=== PATIENT | male | born 1950 | race Caucasian/White ===

== ENCOUNTER 2018-12-03 11:55 | Day surgery (SDC) | payer OTHER ==
[~2018-12-03] VITALS: Ht 167.6 cm; Wt 78.6 kg
[~2018-12-03 11:55] MED LIST: ALBIPROI INH; ALBU3IS INH; ALBU90OI; ALBU90OI INH; AMLO5 PO; ASPI325EC PO; ASPI81EC PO; ATOR20 PO; ATOR40TA PO; ATOR80 PO; AZIT250 PO; Accuneb1.25 MG/3 INH; BENADRYL PO; CHOL10002 PO; COMBIVENT RESPIM4 GM INH; DOXA2 PO; Doxycycline Hy100 MG PO; FENO67 PO; FINA5 PO; FISH1000 PO; FLONASE ALLERG9.9 ML NS; FLUD.1 PO; FLUDROCORTISONE PO; FLUSAL1005 IH; FLUSAL2505; FLUSAL2505 IH; FLUSAL5005 INH; FLUSAL5005 PO; FLUT.05NI; FLUT1DIS8 INH; GABA100 PO; IPRA.03NI; LEVFLO500 PO; MEDICAL MARIJUANA; MESA400ER PO; METF500 PO; METFORMIN HCL500 MG PO; MOME220I; MONT10T; MUCUS ER1200 MG PO; MULVITMIND PO; Multiple Vitam1 EAC1 PO; NAPR500; NAPR550 PO; Naprosyn500 MG PO; Norco 5-325 Ta1 EACH PO; OXYACE5T; OXYACE5T PO; PRED10 PO; PRED20 PO; PROM25 PO; ROFL500T PO; ROSU10TA PO; SACC250C PO; SULTRIDS PO; TAMS.4ER PO; TOLT2ER PO; WAL-ZYR10 MG PO; ZYRTEC10 M1 PO; Zofran4 MG PO
== END 2018-12-03 14:47 | disposition home or self-care (01) ==
LOC: ORSCSDS 11:55
PROVIDERS: Internal Medicine Gastroenterology
PROC: 0DBM8ZX Excision of Descending Colon, Via Natural or Artificial Opening Endoscopic, Diagnostic (ICD-10-PCS; principal; 2018-12-03 13:45)
PROC: 0DBN8ZX Excision of Sigmoid Colon, Via Natural or Artificial Opening Endoscopic, Diagnostic (ICD-10-PCS; principal; 2018-12-03 13:45)
DX: Z12.11 Encounter for screening for malignant neoplasm of colon (principal); Z86.010 Personal history of colon polyps; K57.30 Diverticulosis of large intestine without perforation or abscess without bleeding; D12.4 Benign neoplasm of descending colon; D12.5 Benign neoplasm of sigmoid colon; I10 Essential (primary) hypertension; Z95.0 Presence of cardiac pacemaker; G47.33 Obstructive sleep apnea (adult) (pediatric); J44.9 Chronic obstructive pulmonary disease, unspecified; Z87.891 Personal history of nicotine dependence; Z99.81 Dependence on supplemental oxygen; B19.20 Unspecified viral hepatitis C without hepatic coma; Z79.899 Other long term (current) drug therapy
CPT/HCPCS: 82947; 88305; J2370; J7120

== ENCOUNTER 2019-05-19 14:34 | Emergency (ER) | payer OTHER ==
[~2019-05-19] VITALS: Ht 167.6 cm; Wt 82.5 kg
[2019-05-19] MEDS ORDERED: AMLO5 PO (14:48)
[2019-05-19] MEDS ORDERED: PRED10 PO (14:50)
[2019-05-19 15:15] LABS: BASOPHILS ABSOLUTE AUTO 0.05 K/mm3 (0.00-0.23); BASOPHILS PERCENT AUTO 0 % (0-2); EOSINOPHILS ABSOLUTE AUTO 0.01 K/mm3 (0.00-0.68); EOSINOPHILS PERCENT AUTO 0 % (0-6); Hematocrit 46.5 % (37.0-53.0); Hemoglobin 15.5 g/dL (13.5-17.5); IMMATURE GRAN ABSOLUTE AUTO 0.13 K/mm3 (0.00-0.10); IMMATURE GRAN PERCENT AUTO 1 % (0-1); LYMPHOCYTES ABSOLUTE AUTO 1.86 K/mm3 (0.84-5.20); LYMPHOCYTES PERCENT AUTO 11 % (21-46); MONOCYTES ABSOLUTE AUTO 1.28 K/mm3 (0.16-1.47); MONOCYTES PERCENT AUTO 7 % (4-13); Mean Corpuscular HGB 31.3 pg (26.0-34.0); Mean Corpuscular HGB Conc 33.3 g/dL (31.5-36.5); Mean Corpuscular Volume 94 fL (80-100); Mean Platelet Volume 9.7 fL (9.1-12.4); NEUTROPHILS ABSOLUTE AUTO 13.97 K/mm3 (1.96-9.15); NEUTROPHILS PERCENT AUTO 81 % (41-73); Platelet Count 227 K/mm3 (150-400); RDW Coefficient Variation 13.4 % (11.7-14.2); RDW Standard Deviation 45.7 fL (35.1-46.3); Red Blood Cell Count 4.96 M/mm3 (4.30-5.90)
[2019-05-19 15:56] LABS: Alanine Aminotransfer (ALT/SGP 51 U/L (12-78); Albumin, Blood 4.4 g/dL (3.4-5.0); Albumin/Globulin Ratio 1.2 (0.8-1.8); Alk Phos 53 U/L (50-136); Anion Gap 7 mmol/L (6-16); Aspartate Aminotrans (AST/SGOT 33 U/L (12-37); Bilirubin, Total 1.1 mg/dL (0.1-1.0); Blood Urea Nitrogen 12 mg/dL (8-24); Bun/Creatinine Ratio 17.3 (12.0-20.0); CO2, Blood 23 mmol/L (21-32); Calcium, Blood 9.4 mg/dL (8.5-10.1); Chloride, Blood 110 mmol/L (98-108); Creatinine, Blood 0.69 mg/dL (0.60-1.20); Globulin, Blood 3.8 g/dL (2.2-4.0); Glomerular Filtration Rate >60 (60-); Glucose, Blood 137 mg/dL (70-99); Potassium, Blood 3.9 mmol/L (3.5-5.5); Sodium, Blood 140 mmol/L (136-145); Total Protein, Blood 8.2 g/dL (6.4-8.2)
[2019-05-19 16:42] LABS: Magnesium, Blood 2.1 mg/dL (1.6-2.4); Troponin I <0.015 ng/mL (0.000-0.040)
[2019-05-19] MEDS ORDERED: Flagyl500 MG PO (17:54)
[2019-05-19] MEDS ORDERED: Cipro500 MG PO (17:54)
[2019-05-19] MEDS ORDERED: Zofran4 MG PO (17:55)
[2019-05-19 18:08] LABS: Source, Urine Clean Catch
[2019-05-19 18:30] LABS: Bilirubin, Urine Neg (Neg); Blood, Urine 1+ (Neg); Glucose Qualitative, Urine Neg (Neg); Ketones, Urine 2+ (Neg); Leukocyte Esterase, Urine Neg (Neg); Nitrite, Urine Neg (Neg); Protein, Urine 3+ (Neg); Urobilinogen, Urine NORM (Normal)
[2019-05-19 18:40] LABS: Appearance, Urine Clear (Clear); Color, Urine Yellow (P-Yellow)
[2019-05-19 18:41] LABS: Bacteria Mod /hpf; Mucus Light (0-Heavy); Red Blood Cells, Urine 0-2 /hpf (0-2); Squamous Epithelial Cells Not Seen /hpf (Few); White Blood Cells, Urine 0-2 /hpf (0-5)
== END 2019-05-19 18:22 | disposition home or self-care (01) ==
LOC: ER 14:34
PROVIDERS: Emergency Medicine
DX: K52.9 Noninfective gastroenteritis and colitis, unspecified (principal); E11.9 Type 2 diabetes mellitus without complications; J44.9 Chronic obstructive pulmonary disease, unspecified; N40.0 Benign prostatic hyperplasia without lower urinary tract symptoms; Z88.8 Allergy status to other drugs, medicaments and biological substances; Z91.018 Allergy to other foods; Z87.891 Personal history of nicotine dependence; Z86.19 Personal history of other infectious and parasitic diseases; Z79.84 Long term (current) use of oral hypoglycemic drugs; Z79.899 Other long term (current) drug therapy
CPT/HCPCS: 71046; 74176; 80053; 81001; 83690; 83735; 84145; 84484; 85025; 87086; 93005; 93010; 94640; 96360; 99285-25; A9270-GY; J7030

== ENCOUNTER → 2021-12-19 | Outpatient (CLI) | payer OTHER ==
[~2021-12-19] MED LIST changes: +Cipro500 MG PO; +Flagyl500 MG PO
== END | disposition home or self-care (01) ==
LOC: LAB 11:54 → LAB SHORT 11:54
DX: L72.3 Sebaceous cyst (principal)
CPT/HCPCS: 87070; 87075; 87205

== ENCOUNTER 2022-04-20 07:23 | Emergency (ER) | payer OTHER ==
[~2022-04-20] VITALS: Ht 167.6 cm; Wt 76.2 kg
[2022-04-20 08:13] LABS: BASOPHILS ABSOLUTE AUTO 0.03 K/mm3 (0.00-0.23); BASOPHILS PERCENT AUTO 0 % (0-2); EOSINOPHILS PERCENT AUTO 0 % (0-6); Hematocrit 43.6 % (37.0-53.0); Hemoglobin 14.7 g/dL (13.5-17.5); IMMATURE GRAN ABSOLUTE AUTO 0.12 K/mm3 (0.00-0.10); IMMATURE GRAN PERCENT AUTO 1 % (0-1); LYMPHOCYTES ABSOLUTE AUTO 2.06 K/mm3 (0.84-5.20); LYMPHOCYTES PERCENT AUTO 12 % (21-46); MONOCYTES ABSOLUTE AUTO 2.03 K/mm3 (0.16-1.47); MONOCYTES PERCENT AUTO 12 % (4-13); Mean Corpuscular HGB 30.5 pg (26.0-34.0); Mean Corpuscular HGB Conc 33.7 g/dL (31.5-36.5); Mean Corpuscular Volume 91 fL (80-100); Mean Platelet Volume 9.1 fL (9.1-12.4); NEUTROPHILS ABSOLUTE AUTO 12.79 K/mm3 (1.96-9.15); NEUTROPHILS PERCENT AUTO 75 % (41-73); Platelet Count 278 K/mm3 (150-400); RDW Standard Deviation 43.1 fL (35.1-46.3); Red Blood Cell Count 4.82 M/mm3 (4.30-5.90); White Blood Cell Count 17.03 K/mm3 (4.00-11.30)
[2022-04-20 08:26] LABS: Albumin, Blood 3.8 g/dL (3.4-5.0); Bilirubin, Total 0.7 mg/dL (0.1-1.0); Bun/Creatinine Ratio 23.4 (12.0-20.0); Calcium, Blood 9.7 mg/dL (8.5-10.1); Creatinine, Blood 0.73 mg/dL (0.60-1.20); Total Protein, Blood 7.8 g/dL (6.4-8.2)
[2022-04-20] MEDS ORDERED: AMOCLA875 PO (09:50)
== END 2022-04-20 10:10 | disposition home or self-care (01) ==
LOC: ER 07:23
PROVIDERS: Emergency Medicine
DX: J44.1 Chronic obstructive pulmonary disease with (acute) exacerbation (principal); K52.1 Toxic gastroenteritis and colitis; T38.3X5A Adverse effect of insulin and oral hypoglycemic [antidiabetic] drugs, initial encounter; D72.829 Elevated white blood cell count, unspecified; E11.9 Type 2 diabetes mellitus without complications; Z79.84 Long term (current) use of oral hypoglycemic drugs; Z88.8 Allergy status to other drugs, medicaments and biological substances; Z91.018 Allergy to other foods; Z79.899 Other long term (current) drug therapy
CPT/HCPCS: 71046; 74177; 80053; 83690; 85025; 93005; 93010; 94640; 94664; A9270; Q9967

== ENCOUNTER 2022-11-26 07:52 | Day surgery (SDC) | payer OTHER ==
[~2022-11-26] VITALS: Ht 167.6 cm; Wt 74.8 kg
[~2022-11-26 07:52] MED LIST changes: +AMOCLA875 PO
[2022-11-26] MEDS ORDERED: Keflex500 MG PO (12:11)
--- NOTE | 2022-11-26 14:05 | NUR ---
PT AND CAREGIVER VERBALIZED UNDERSTANDING OF WRITTEN AND VERBAL D/C INST. -BLEEDING OR SWELLING L UPPER CHEST AREA. IV REMOVED. PT TAKEN OUT OF THE HRT CENTER VIA W/C.
== END 2022-11-26 14:07 | disposition home or self-care (01) ==
LOC: MHTC 07:52
DX: Z45.010 Encounter for checking and testing of cardiac pacemaker pulse generator [battery] (principal); I10 Essential (primary) hypertension; R06.02 Shortness of breath; Z88.8 Allergy status to other drugs, medicaments and biological substances; J44.9 Chronic obstructive pulmonary disease, unspecified; E11.9 Type 2 diabetes mellitus without complications; E78.5 Hyperlipidemia, unspecified; Z79.84 Long term (current) use of oral hypoglycemic drugs
CPT/HCPCS: 33228; 99152; 99153; C1781; C1785; J0690; J1644; J2250; J3010; J7030; J7040

== ENCOUNTER 2023-04-07 18:01 | Emergency (ER) | payer OTHER ==
[~2023-04-07] VITALS: Ht 167.6 cm; Wt 74.8 kg
[~2023-04-07 18:01] MED LIST changes: +Keflex500 MG PO
[2023-04-07 18:45] VITALS: BP 145/79
== END 2023-04-07 18:54 | disposition home or self-care (01) ==
LOC: ER 18:01
DX: E11.65 Type 2 diabetes mellitus with hyperglycemia (principal); Z88.8 Allergy status to other drugs, medicaments and biological substances; Z91.018 Allergy to other foods; Z79.899 Other long term (current) drug therapy; Z79.84 Long term (current) use of oral hypoglycemic drugs; Z79.52 Long term (current) use of systemic steroids; J44.9 Chronic obstructive pulmonary disease, unspecified
CPT/HCPCS: 82947

== ENCOUNTER 2023-10-28 11:53 | Emergency (ER) | payer OTHER ==
[~2023-10-28] VITALS: Ht 162.6 cm; Wt 70.3 kg
[~2023-10-28 11:53] MED LIST changes: +ACIDOPHILUS1 EAC3 PO; +DOCUZEN 8.6-501 EACH PO; +FUROSEMIDE40 MG PO; +LEVAQUIN750 MG PO; +MIRALAX17 GM PO; +Prednisone10 MG; +ZYRTEC10 M2 PO
[2023-10-28 12:26] VITALS: BP 153/72
[2023-10-28 13:00] LABS: BASOPHILS ABSOLUTE AUTO 0.05 K/mm3 (0.00-0.23); BASOPHILS PERCENT AUTO 1 % (0-2); EOSINOPHILS ABSOLUTE AUTO 0.07 K/mm3 (0.00-0.68); EOSINOPHILS PERCENT AUTO 1 % (0-6); Hemoglobin 14.5 g/dL (13.5-17.5); IMMATURE GRAN ABSOLUTE AUTO 0.03 K/mm3 (0.00-0.10); IMMATURE GRAN PERCENT AUTO 0 % (0-1); LYMPHOCYTES ABSOLUTE AUTO 2.67 K/mm3 (0.84-5.20); LYMPHOCYTES PERCENT AUTO 28 % (21-46); MONOCYTES ABSOLUTE AUTO 0.82 K/mm3 (0.16-1.47); MONOCYTES PERCENT AUTO 9 % (4-13); Mean Corpuscular HGB 30.5 pg (26.0-34.0); Mean Corpuscular HGB Conc 33.7 g/dL (31.5-36.5); Mean Corpuscular Volume 91 fL (80-100); Mean Platelet Volume 8.9 fL (9.1-12.4); NEUTROPHILS ABSOLUTE AUTO 5.85 K/mm3 (1.96-9.15); NEUTROPHILS PERCENT AUTO 62 % (41-73); Platelet Count 266 K/mm3 (150-400); RDW Coefficient Variation 13.7 % (11.7-14.2); RDW Standard Deviation 45.5 fL (35.1-46.3); Red Blood Cell Count 4.75 M/mm3 (4.30-5.90); White Blood Cell Count 9.49 K/mm3 (4.00-11.30)
[2023-10-28 13:34] LABS: Albumin, Blood 3.9 g/dL (3.4-5.0); Bilirubin, Total 0.4 mg/dL (0.1-1.0); Bun/Creatinine Ratio 19.7 (12.0-20.0); Calcium, Blood 9.8 mg/dL (8.5-10.1); Creatinine, Blood 0.71 mg/dL (0.60-1.20); Globulin, Blood 3.9 g/dL (2.2-4.0); Potassium, Blood 3.9 mmol/L (3.5-5.5); Total Protein, Blood 7.8 g/dL (6.4-8.2)
== END 2023-10-28 16:55 | disposition home or self-care (01) ==
LOC: ER 11:53
PROVIDERS: Physician Assistant
DX: M19.90 Unspecified osteoarthritis, unspecified site (principal); J44.9 Chronic obstructive pulmonary disease, unspecified; E11.40 Type 2 diabetes mellitus with diabetic neuropathy, unspecified; E11.51 Type 2 diabetes mellitus with diabetic peripheral angiopathy without gangrene; I11.0 Hypertensive heart disease with heart failure; I50.30 Unspecified diastolic (congestive) heart failure; Z88.8 Allergy status to other drugs, medicaments and biological substances; Z91.018 Allergy to other foods; Z79.899 Other long term (current) drug therapy; Z87.891 Personal history of nicotine dependence; Z95.0 Presence of cardiac pacemaker
CPT/HCPCS: 80053; 85025; 99283; A9270

== ENCOUNTER → 2023-12-26 | Outpatient (CLI) | payer OTHER | LOC: LAB 17:06 → LAB SHORT 17:06 | DX: L08.9 Local infection of the skin and subcutaneous tissue, unspecified (principal) | CPT/HCPCS: 87070; 87077; 87186; 87205 ==

== ENCOUNTER 2025-02-04 07:26 | Day surgery (SDC) | payer OTHER ==
[~2025-02-04 07:26] MED LIST changes: +ALBUTEROL1.25 MG/3 INH; +ANORO ELLIPTA1 EACH INH; +Cymbalta20 MG PO; +GABA300 PO; +Lactated Ringer's 1,000 ML IV SCH; +MONT10T PO
[2025-02-04 08:09] VITALS: BP 151/87
--- NOTE | 2025-02-04 08:21 | NUR ---
History, Chart, Medications and Allergies reviewed before start of procedure. Patient states colon prep results clear. Patient confirms NPO status and agrees with scheduled surgery. Pre-Op teaching done. Pt verbalizes understanding. LUNGS WIHT EXP WHEEZES T/O. REPORTS SMOKED MARIJUANA THIS MORNING ABOUT 0500 AM.
[2025-02-04] MEDS ORDERED: propofoL 40 ML IV ONE (09:00)
--- NOTE | 2025-02-04 09:10 | NUR ---
02/04/25 0910 Becky Navarro 0904-History, Chart, Medications and Allergies reviewed before start of procedure.MONITOR INTACT WITH CONTINUOUS PULSE OXIMETRY, CONTINUOUS END TITAL CO2, 3-LEAD EKG AND INTERMITTENT BLOOD PRESSURE.3-LEAD EKG REVIEWED WITH PHYSICIAN PRIOR TO START OF PROCEDURE.O2 VIA POM INTACT THROUGHOUT SEDATION/PROCEDURE. PROVIDING MAC-SEE ANESTHESIA RECORD.
[2025-02-04 09:42] VITALS: BP 114/40
[2025-02-04 09:49] VITALS: BP 145/65
--- NOTE | 2025-02-04 10:07 | NUR ---
DISCHARGE PT A&O4/VSS/RA/RY PO H20/DENIES PAIN/DRESSED SELF/IV DC'D, DC INS PROVIDED/ COPY SENT WITH PT, LEFT VIA WC WITH DC VOL WITH ALL PERSONAL POSSESSIONS TO GO HOME WITH [facility] [phone].
== END 2025-02-04 23:00 | disposition home or self-care (01) ==
LOC: ORSCMMR 07:26 → ORD 09:00 → ORSCMMR 09:00
PROVIDERS: Internal Medicine Gastroenterology
PROC: 0DBM8ZX Excision of Descending Colon, Via Natural or Artificial Opening Endoscopic, Diagnostic (ICD-10-PCS; principal; 2025-02-04 09:00)
PROC: 0DBN8ZX Excision of Sigmoid Colon, Via Natural or Artificial Opening Endoscopic, Diagnostic (ICD-10-PCS; principal; 2025-02-04 09:00)
PROC: 0DBP8ZX Excision of Rectum, Via Natural or Artificial Opening Endoscopic, Diagnostic (ICD-10-PCS; principal; 2025-02-04 09:00)
DX: Z12.11 Encounter for screening for malignant neoplasm of colon (principal); Z86.0100 Personal history of colon polyps, unspecified; K63.5 Polyp of colon; K62.1 Rectal polyp; K62.89 Other specified diseases of anus and rectum; K57.30 Diverticulosis of large intestine without perforation or abscess without bleeding; I10 Essential (primary) hypertension; E78.5 Hyperlipidemia, unspecified; Z95.0 Presence of cardiac pacemaker; J44.9 Chronic obstructive pulmonary disease, unspecified; E11.9 Type 2 diabetes mellitus without complications; Z79.84 Long term (current) use of oral hypoglycemic drugs; Z79.899 Other long term (current) drug therapy; Z85.118 Personal history of other malignant neoplasm of bronchus and lung; Z87.891 Personal history of nicotine dependence
CPT/HCPCS: 82947; 88305; J2704; J7120

== ENCOUNTER 2025-10-02 07:55 | Inpatient (IN) | payer OTHER ==
[~2025-10-02] VITALS: Ht 165.1 cm; Wt 76.6 kg
[~2025-10-02 07:55] MED LIST changes: -Lactated Ringer's 1,000 ML IV SCH
[2025-10-02 08:33] LABS: BASOPHILS ABSOLUTE AUTO 0.03 K/mm3 (0.00-0.23); BASOPHILS PERCENT AUTO 0 % (0-2); EOSINOPHILS ABSOLUTE AUTO 0.08 K/mm3 (0.00-0.68); EOSINOPHILS PERCENT AUTO 1 % (0-6); Hematocrit 45.6 % (37.0-53.0); Hemoglobin 15.2 g/dL (13.5-17.5); IMMATURE GRAN ABSOLUTE AUTO 0.03 K/mm3 (0.00-0.10); IMMATURE GRAN PERCENT AUTO 0 % (0-1); LYMPHOCYTES ABSOLUTE AUTO 1.90 K/mm3 (0.84-5.20); LYMPHOCYTES PERCENT AUTO 23 % (21-46); MONOCYTES ABSOLUTE AUTO 0.86 K/mm3 (0.16-1.47); MONOCYTES PERCENT AUTO 10 % (4-13); Mean Corpuscular HGB Conc 33.3 g/dL (31.5-36.5); Mean Corpuscular Volume 94 fL (80-100); NEUTROPHILS ABSOLUTE AUTO 5.55 K/mm3 (1.96-9.15); NEUTROPHILS PERCENT AUTO 66 % (41-73); NRBC ABSOLUTE 0.00 K/mm3 (0.00-0.02); NRBC Auto 0.0 /100 WBC (0.0-0.2); Platelet Count 234 K/mm3 (150-400); RDW Coefficient Variation 13.2 % (11.7-14.2); RDW Standard Deviation 45.1 fL (35.1-46.3)
[2025-10-02] MEDS ORDERED: Ipratropium/Albuterol SulF 2.5-0.5MG/3 ML Amp INH ONE (08:40)
[2025-10-02] MEDS ORDERED: Albuterol 2.5 MG/3 ML VIAL INH SCH ×2 (08:40→11:25)
[2025-10-02 08:54] LABS: Alanine Aminotransfer (ALT/SGP 96.0 U/L (12-78); Albumin, Blood 4.2 g/dL (3.4-5.0); Albumin/Globulin Ratio 1.1 (0.8-1.8); Anion Gap 9.0 mmol/L (3-11); Aspartate Aminotrans (AST/SGOT 61.0 U/L (12-37); Bilirubin, Total 0.6 mg/dL (0.1-1.0); Blood Urea Nitrogen 12.0 mg/dL (8-24); CO2, Blood 25.0 mmol/L (21-32); Calcium, Blood 9.5 mg/dL (8.5-10.1); Chloride, Blood 107.0 mmol/L (98-108); Creatinine, Blood 0.74 mg/dL (0.60-1.20); Globulin, Blood 3.8 g/dL (2.2-4.0); Glucose, Blood 130.0 mg/dL (70-99); Potassium, Blood 4.0 mmol/L (3.5-5.5); Sodium, Blood 137.0 mmol/L (136-145); Total Protein, Blood 8.0 g/dL (6.4-8.2)
[2025-10-02 09:57] LABS: Influenza A, PCR NEGATIVE (NEGATIVE); Influenza B, PCR NEGATIVE (NEGATIVE); Resp Syncytial Virus, PCR NEGATIVE (NEGATIVE); SARS-Cov-2 (COVID-19) PCR, MMC NEGATIVE (NEGATIVE)
[2025-10-02] MEDS ORDERED: NS 250 ML IV SCH (11:25)
[2025-10-02] MEDS ORDERED: FLU VACC TS2025(65UP)/MF59C/PF 45 MCG/0.5 ML SYRINGE IM SCH (11:50)
[2025-10-02] MEDS ORDERED: Albuterol 2.5 MG/3 ML VIAL INH PRN (11:55)
[2025-10-02] MEDS ORDERED: Ipratropium/Albuterol SulF 2.5-0.5MG/3 ML Amp INH SCH (12:00)
[2025-10-02] MEDS ORDERED: Cefepime HCl 2,000 MG in NS 100 ML IV SCH (12:00)
[2025-10-02] MEDS ORDERED: AMLO5 PO (13:02)
[2025-10-02] MEDS ORDERED: ANORO ELLIPTA1 EACH INH (13:03)
[2025-10-02] MEDS ORDERED: ATOR40TA PO (13:03)
--- NOTE | 2025-10-02 13:52 | NUR ---
ADMISSION: PT ARRIVED TO PCU @1250 VIA GURNEY. PT ABLE TO XFER VIA ONE PERSON ASSIST WITH CANE TO BED. PT ALERT AND ORIENTED X4, ABLE TO FOLLOW COMMANDS AND MAKE NEEDS KNOWN. STRENGTH EQUAL BILATERALLY. PT [place]. BP STABLE. HR ST 120'S. AFEBRILE. SPO2 >96% ON ROOM AIR. LUNG SOUNDS WITH WHEEZE THROUGHOUT. PRN BREATHING TREATMENT ORDERED. ABD SOFT, NON TENDER, BOWEL SOUNDS +. PT INC OF URINE, ATTENDS IN PLACE. PULSES STRONG AND EQUAL THROUGHOUT. HOME MEDICATIONS REVIEWED. PT ORIENTED ROOM AND CALL LIGHT SYSTEM. BED IN LOW, CALL LIGHT IN REACH.
[2025-10-02 15:51] VITALS: BP 129/82
[2025-10-02] MEDS ORDERED: Insulin Human Lispro 100 Units/ML 3ML Syringe SC SCH (16:30)
--- NOTE | 2025-10-02 19:39 | NUR ---
ASSUMPTION OF CARE ASSUMED PT'S CARE AT 1910,PT SITTING UP IN BED RECEIVING NEBULIZER TREATMENT.BEDSIDE REPORT COMPLETED,PLAN OF CARE REVIEWED.PT DENIES PAIN,DENIES SOB,DENIES NEEDS AT THIS TIME.CALL LIGHT AND PT'S ITEMS WITHIN REACH.MONITORING ONGOING PER PROTOCOL.
[2025-10-02 20:07] VITALS: BP 121/106
[2025-10-02 23:36] VITALS: BP 109/57
[2025-10-03 03:53] VITALS: BP 153/87
[2025-10-03 04:30] LABS: BASOPHILS ABSOLUTE AUTO 0.02 K/mm3 (0.00-0.23); BASOPHILS PERCENT AUTO 0 % (0-2); EOSINOPHILS ABSOLUTE AUTO 0.01 K/mm3 (0.00-0.68); EOSINOPHILS PERCENT AUTO 0 % (0-6); Hematocrit 43.1 % (37.0-53.0); Hemoglobin 14.1 g/dL (13.5-17.5); IMMATURE GRAN ABSOLUTE AUTO 0.09 K/mm3 (0.00-0.10); IMMATURE GRAN PERCENT AUTO 1 % (0-1); LYMPHOCYTES ABSOLUTE AUTO 0.95 K/mm3 (0.84-5.20); LYMPHOCYTES PERCENT AUTO 5 % (21-46); MONOCYTES ABSOLUTE AUTO 0.73 K/mm3 (0.16-1.47); MONOCYTES PERCENT AUTO 4 % (4-13); Mean Corpuscular HGB Conc 32.7 g/dL (31.5-36.5); Mean Corpuscular Volume 95 fL (80-100); NEUTROPHILS ABSOLUTE AUTO 16.56 K/mm3 (1.96-9.15); NEUTROPHILS PERCENT AUTO 90 % (41-73); NRBC ABSOLUTE 0.00 K/mm3 (0.00-0.02); NRBC Auto 0.0 /100 WBC (0.0-0.2); Platelet Count 246 K/mm3 (150-400); RDW Coefficient Variation 13.3 % (11.7-14.2); RDW Standard Deviation 46.9 fL (35.1-46.3)
[2025-10-03 04:57] LABS: Alanine Aminotransfer (ALT/SGP 79.0 U/L (12-78); Albumin, Blood 3.7 g/dL (3.4-5.0); Albumin/Globulin Ratio 1.0 (0.8-1.8); Anion Gap 10.0 mmol/L (3-11); Aspartate Aminotrans (AST/SGOT 38.0 U/L (12-37); Bilirubin, Total 0.3 mg/dL (0.1-1.0); Blood Urea Nitrogen 25.0 mg/dL (8-24); CO2, Blood 20.0 mmol/L (21-32); Calcium, Blood 10.0 mg/dL (8.5-10.1); Chloride, Blood 111.0 mmol/L (98-108); Creatinine, Blood 0.81 mg/dL (0.60-1.20); Globulin, Blood 3.7 g/dL (2.2-4.0); Glucose, Blood 187.0 mg/dL (70-99); Potassium, Blood 4.2 mmol/L (3.5-5.5); Sodium, Blood 137.0 mmol/L (136-145); Total Protein, Blood 7.4 g/dL (6.4-8.2)
--- NOTE | 2025-10-03 06:09 | NUR ---
PT MONITORED DURING THE SHIFT.PT CONTINUES TO EXPERIENCE EPISODES OF COUGHING WHILE AWAKE,AUDIBLE WHEEZES AND PRODUCTION OF YELLOW PHLEGM.NEBULIZER TREATMENTS ADMINISTERED BY RT ORDERED PER PT'S REQUEST.PT AWAKE AT THIS TIME SITTING UP IN BED COUGHING,RT IN ROOM ADMINISTERING A PRN NEBULIZER TREATMENT.PT REPORTS THAT HE SLEPT BETTER THAT HE HAS IN THE LAST THREE DAYS.PT DENIES PAIN,DENIES NEEDS.MAINTAINED OXYGEN SATURATION >94% ON RA.CALL LIGHT AND PT'S ITEMS WITHIN REACH.MONITORING ONGOING PER PROTOCOL.
[2025-10-03 08:04] VITALS: BP 142/82
[2025-10-03] MEDS ORDERED: Enoxaparin 40 MG/0.4 ML SYR SC SCH (09:00)
[2025-10-03 11:27] VITALS: BP 131/79
--- NOTE | 2025-10-03 16:19 | NUR ---
SHIFT SUMMARY PT A&Ox4, CALLS AND COMMUNICATES NEEDS APPROPRIATELY. PT VERY TALKATIVE AND HAS FLIGHTS OF IDEAS AT TIMES. PT WITH INCREASED WORK OF BREATHING AND RR STATINDG THAT HE FEELS LIKE HE CAN'T BREATH DESPITE HAVING BREATHING TREATMENTS. PT TELLING FAMILY MEMEBER THAT HE WAS ABOUT TO GO TO ICU BECAUSE HE COULDN'T BREATH. SpO2> 92% ON RA AND PT BREATHING EASY WHEN STAFF ARE NOT IN ROOM. THIS RN TO BEDSIDE TO DISCUSS PT STATUS AND EDUCATE PT AND FAMILY ABOUT CONDITION. THIS RN NOTIFIED PROVIDER, ORDERS PLACED FOR AN ANTI ANXIETY MEDICATION. AFTER ADMINISTERING ANTI ANXIETY MEDICATION PT STATES THAT HE FEELS MUCH MORE RELAXED. BP STABLE, PACED 100's, DENIES CP/PRESSURE. SBA IN ROOM. CONTINENT OF URINE AND BOWEL. NO C/O PAIN. PT WITH PRODUCTIVE COUGH. NO OTHER EVENTS, WILL REPORT TO ONCOMING RN.
[2025-10-03 20:34] VITALS: BP 119/80
[2025-10-04] VITALS (7 sets, daily range): BP systolic 114–149; BP diastolic 67–92
[2025-10-04 04:12] LABS: BASOPHILS ABSOLUTE AUTO 0.02 K/mm3 (0.00-0.23); BASOPHILS PERCENT AUTO 0 % (0-2); EOSINOPHILS ABSOLUTE AUTO 0.02 K/mm3 (0.00-0.68); EOSINOPHILS PERCENT AUTO 0 % (0-6); Hematocrit 41.5 % (37.0-53.0); Hemoglobin 14.0 g/dL (13.5-17.5); IMMATURE GRAN ABSOLUTE AUTO 0.13 K/mm3 (0.00-0.10); IMMATURE GRAN PERCENT AUTO 1 % (0-1); LYMPHOCYTES ABSOLUTE AUTO 0.96 K/mm3 (0.84-5.20); LYMPHOCYTES PERCENT AUTO 4 % (21-46); MONOCYTES ABSOLUTE AUTO 0.85 K/mm3 (0.16-1.47); MONOCYTES PERCENT AUTO 4 % (4-13); Mean Corpuscular HGB Conc 33.7 g/dL (31.5-36.5); Mean Corpuscular Volume 93 fL (80-100); NEUTROPHILS ABSOLUTE AUTO 19.87 K/mm3 (1.96-9.15); NEUTROPHILS PERCENT AUTO 91 % (41-73); NRBC ABSOLUTE 0.00 K/mm3 (0.00-0.02); NRBC Auto 0.0 /100 WBC (0.0-0.2); Platelet Count 245 K/mm3 (150-400); RDW Coefficient Variation 13.4 % (11.7-14.2); RDW Standard Deviation 46.1 fL (35.1-46.3)
[2025-10-04 04:44] LABS: Anion Gap 12.0 mmol/L (3-11); Blood Urea Nitrogen 30.0 mg/dL (8-24); CO2, Blood 20.0 mmol/L (21-32); Calcium, Blood 10.1 mg/dL (8.5-10.1); Chloride, Blood 109.0 mmol/L (98-108); Creatinine, Blood 0.81 mg/dL (0.60-1.20); Glucose, Blood 207.0 mg/dL (70-99); Potassium, Blood 4.3 mmol/L (3.5-5.5); Sodium, Blood 137.0 mmol/L (136-145)
--- NOTE | 2025-10-04 06:29 | NUR ---
PT STABLE THROUGHOUT SHIFT. PT AOX4, ABLE TO USE CALL LIGHT AND MAKE NEEDS KNOWN. PT USES URINAL INDEPENDENTLY AT BEDSIDE. PT REPORTS IMPROVED BREATHING AND LESS ANXIETY. PT IS ABLE TO TALK IN FULL SENTENCES FOR EXTENDED LENGTHS OF TIME W/O BECOMING SOB. PT HAS HAD GOOD URINARY OUTPUT. VITAL SIGNS WNL. PT REMAINS ON ROOM AIR. PT TOLERATING IV ABX WELL.
[2025-10-04] MEDS ORDERED: Ipratropium/Albuterol SulF 2.5-0.5MG/3 ML Amp INH SCH (16:00)
[2025-10-04] MEDS ORDERED: Docusate Sodium/Senna 1 Tab PO PRN (16:25)
[2025-10-04] MEDS ORDERED: Polyethylene Glycol 3350 17 gm PO PRN (16:25)
--- NOTE | 2025-10-04 17:26 | NUR ---
SHIFT SUMMARY PT IS A&O X4, ANXIOUS, AND VERY TALKATIVE. PT REPORTS COMPLETE LOSS OF HEARING IN LEFT EAR, PARTIAL LOSS IN RIGHT. UNABLE TO USE HEARING AIDS DUE TO LACK OF POWER ENGINEER AT THIS TIME. PT ALSO REPORTS VISUAL IMPAIRMENT, GLASSES IN USE. REQUIRES 1 ASSIST TO TRANSFER IN ROOM. PT HAS MAINTAINED O2 SATS > 94% ON ROOM AIR T/O SHIFT BUT HAS BEEN REPORTED TO REQUIRE O2 WITH SLEEP DUE TO DESATTING. PT REPORTS SOB CONSISTENT WITH HIS BASELINE SOB THAT TEMPORARILY IMPROVES AFTER BREATHING TREATMENTS. FLUTTER VALVE AND EDUCATION PROVIDED TO PT BY RT THIS SHIFT. PT CONSTANTLY HARSHLY COUGHING AND GETTING UP YELLOW SPUTUM. PT IS NOTABLY WHEEZY, BUT ALSO APPEARS TO HAVE EXACERBATED RESPIRATORY STATUS WHILE HE IS BEING ASSESSED. PT ALSO APPEARS TO HAVE WORSENED RESPIRATORY SYMPTOMS WITH HIS ANXIETY, WHICH IS MEDICATED PER ORDERS. INCREASED DUONEB FREQUENCY THIS SHIFT. RESP PANEL SENT TO LAB, AWAITING RESULTS. PT HAS BEEN SR-ST 90s-110s T/O SHIFT, PACED. BPs HAVE BEEN STABLE. PER PATIENT, HE HAS NOT HAD A BM IN 4 DAYS, PROVIDER NOTIFIED, STOOL SOFTENERS ORDERED. SEE NOTES FOR UPDATES.
[2025-10-04 17:45] LABS: Influenza A/2009-H1 Not Detected (NOT DETECT); SARS-Cov-2 (COVID-19), BioFire Not Detected (NOT DETECT)
[2025-10-04] MEDS ORDERED: Lactobacil 2-S.Thermo-Bifido 1 1 Cap PO SCH (21:00)
[2025-10-05 03:39] VITALS: BP 149/85
--- NOTE | 2025-10-05 06:13 | NUR ---
NO ACUTE EVENTS OVERNIGHT. PT'S LUNG SOUNDS ARE STILL WHEEZY THROUGHOUT. PT USES URINAL APPROPRIATELY. FOLLOWS COMMANDS. PT IS PLEASANT AND TALKATIVE. SPO2>92% ON ROOM AIR. NEB TREATMENTS GIVEN ORDERED BY RT. DROPLET PRECAUTIONS IN PLACE. BED LOCKED IN LOWEST POSITION. CALL LIGHT WITHIN REACH.
[2025-10-05] MEDS ORDERED: Insulin Regular 100 UNIT/ML 10ML Vial SC SCH (07:30)
[2025-10-05 07:33] VITALS: BP 135/65
[2025-10-05 11:54] VITALS: BP 144/76
[2025-10-05 15:58] VITALS: BP 131/92
--- NOTE | 2025-10-05 17:45 | NUR ---
PT IS A&Ox4 AND ABLE TO MAKE NEEDS KNOWN. HE IS ON RA W/O2 SATS > 92%. HE IS A SBA FOR AMBULATION. NO NEEDS OR CONCERNS NOTED @ THIS TIME. BED IN LOW POSITION, CALL LIGHT AND PERSONAL BELONGINGS IN REACH.
[2025-10-05 20:13] VITALS: BP 126/71
[2025-10-05 23:40] VITALS: BP 121/72
[2025-10-06 05:00] VITALS: BP 148/74
[2025-10-06 05:34] LABS: BASOPHILS ABSOLUTE AUTO 0.08 K/mm3 (0.00-0.23); BASOPHILS PERCENT AUTO 0 % (0-2); EOSINOPHILS ABSOLUTE AUTO 0.03 K/mm3 (0.00-0.68); EOSINOPHILS PERCENT AUTO 0 % (0-6); Hematocrit 45.2 % (37.0-53.0); Hemoglobin 15.0 g/dL (13.5-17.5); IMMATURE GRAN ABSOLUTE AUTO 0.48 K/mm3 (0.00-0.10); IMMATURE GRAN PERCENT AUTO 3 % (0-1); LYMPHOCYTES ABSOLUTE AUTO 2.07 K/mm3 (0.84-5.20); LYMPHOCYTES PERCENT AUTO 11 % (21-46); MONOCYTES ABSOLUTE AUTO 1.59 K/mm3 (0.16-1.47); MONOCYTES PERCENT AUTO 8 % (4-13); Mean Corpuscular HGB Conc 33.2 g/dL (31.5-36.5); Mean Corpuscular Volume 96 fL (80-100); NEUTROPHILS ABSOLUTE AUTO 15.16 K/mm3 (1.96-9.15); NEUTROPHILS PERCENT AUTO 78 % (41-73); NRBC ABSOLUTE 0.00 K/mm3 (0.00-0.02); NRBC Auto 0.0 /100 WBC (0.0-0.2); Platelet Count 238 K/mm3 (150-400); RDW Coefficient Variation 13.3 % (11.7-14.2); RDW Standard Deviation 47.6 fL (35.1-46.3)
--- NOTE | 2025-10-06 05:34 | NUR ---
PT STABLE THROUGHOUT SHIFT. PT REMAIN AOX4, SBA. PT REMAINS ON ROOM AIR. COUGH PRESENT WITH ARREOLA SPUTUM BEING PRODUCED. PT ANXIETY BEING CONTROLLED WITH PRN MED, SEE EMAR. PT TOLERATING IV ABX AND STEROIDS WELL. PT COOPERATIVE WITH CARE. PT DID SLEEP WELL THROUGHOUT NIGHT. PT HAS HAD GOOD URINARY OUTPUT THIS SHIFT.
[2025-10-06 05:52] LABS: Anion Gap 10.0 mmol/L (3-11); Blood Urea Nitrogen 28.0 mg/dL (8-24); CO2, Blood 24.0 mmol/L (21-32); Calcium, Blood 9.3 mg/dL (8.5-10.1); Chloride, Blood 106.0 mmol/L (98-108); Creatinine, Blood 0.86 mg/dL (0.60-1.20); Glucose, Blood 151.0 mg/dL (70-99); Potassium, Blood 4.0 mmol/L (3.5-5.5); Sodium, Blood 136.0 mmol/L (136-145)
[2025-10-06 08:10] VITALS: BP 129/63
[2025-10-06 17:08] VITALS: BP 127/72
--- NOTE | 2025-10-06 18:10 | NUR ---
SHIFT SUMMARY PATIENT A0X4 ABLE TO MAKE NEEDS KNOWN DENIES CP OR SOB. VITALS ARE STABLE AND SATS ARE GREATER ARREOLA 95% ON ROOM AIR. HE IS TOLERATING HIS FOOD AND VOIDING IN THE URINAL. HE STATES HE FEELS BETTER AFTER USING THE FLUTTER VALVE.
[2025-10-06 19:42] VITALS: BP 111/68
[2025-10-07 00:06] VITALS: BP 130/76
--- NOTE | 2025-10-07 01:26 | NUR ---
TRANSFER NOTE: PT ARRIVED ON UNIT VIA BED WITH RN AND PCU TECH. PT VS TAKEN AND CALL LIGHT WITH IN REACH. PT CANE AT BEDSIDE. NO NEEDS AT THIS TIME.
[2025-10-07 01:34] VITALS: BP 149/74
--- NOTE | 2025-10-07 01:34 | NUR ---
PATIENT TRANSFER PT TRANSFERRED TO MEDICAL FLOOR AT 0115. REPORT GIVEN TO MEDICAL FLOOR RN.
[2025-10-07 03:39] VITALS: BP 131/75
[2025-10-07] MEDS ORDERED: NS 250 ML IV PRN (03:50)
--- NOTE | 2025-10-07 04:26 | NUR ---
SHIFT SUMMARY: PT IS AOX4. PT IS PLEASENT WITH SLIGHT ANXIETY AT TIMES. PT IS ABLE TO MAKE NEEDS KNOWN. MEDICATED PER EMAR. PT IS SBA WITH CANE AND USES THE URNIAL STANDING UP AT BEDSIDE. BED ALARM SET FOR SAFETY. NO ACUTE CHANGES. PT WAS A PCU TRANSFER THIS SHIFT.
[2025-10-07 04:52] LABS: Hematocrit 45.8 % (37.0-53.0); Hemoglobin 15.1 g/dL (13.5-17.5); Mean Corpuscular HGB Conc 33.0 g/dL (31.5-36.5); Mean Corpuscular Volume 95 fL (80-100); NRBC ABSOLUTE 0.02 K/mm3 (0.00-0.02); NRBC Auto 0.2 /100 WBC (0.0-0.2); Platelet Count 186 K/mm3 (150-400); RDW Coefficient Variation 13.3 % (11.7-14.2); RDW Standard Deviation 46.6 fL (35.1-46.3)
[2025-10-07 05:05] LABS: BAND PERCENT MAN 2 % (0-8); BASOPHILS ABSOLUTE MAN 0.00 K/mm3 (0.00-0.23); BASOPHILS PERCENT MAN 0 % (0-2); EOSINOPHILS ABSOLUTE MAN 0.00 K/mm3 (0.00-0.68); EOSINOPHILS PERCENT MAN 0 % (0-6); LYMPHOCYTES ABSOLUTE MAN 3.28 K/mm3 (0.84-5.20); LYMPHOCYTES PERCENT MAN 30 % (21-46); MONOCYTES ABSOLUTE MAN 0.98 K/mm3 (0.16-1.47); MONOCYTES PERCENT MAN 9 % (4-13); MYELOCYTE ABSOLUTE MAN 0.54 K/mm3 (0.00-0.00); MYELOCYTE PERCENT MAN 5 % (0-0); NEUTROPHILS ABSOLUTE MAN 6.13 K/mm3 (1.96-9.15); SEG NEUTROPHILS PERCENT MAN 54 % (41-73)
[2025-10-07 05:11] LABS: Anion Gap 9.0 mmol/L (3-11); Blood Urea Nitrogen 33.0 mg/dL (8-24); CO2, Blood 23.0 mmol/L (21-32); Calcium, Blood 9.0 mg/dL (8.5-10.1); Chloride, Blood 108.0 mmol/L (98-108); Creatinine, Blood 0.98 mg/dL (0.60-1.20); Glucose, Blood 153.0 mg/dL (70-99); Potassium, Blood 4.3 mmol/L (3.5-5.5); Sodium, Blood 136.0 mmol/L (136-145)
[2025-10-07 08:09] VITALS: BP 134/83
[2025-10-07 11:56] VITALS: BP 128/71
--- NOTE | 2025-10-07 18:19 | NUR ---
NO ACUTE CHANGES, INCREASED ATARAX, PATIENT REPORTED FEELING BETTER AFTER THE ATARAX INCREASE, PATIENT EDUCATED ON NEED FOR SPUTUMN CULTURE, CALL LIGHT WITH IN REACH, WILL RELAY TO PM RN
[2025-10-07 19:39] VITALS: BP 118/62
[2025-10-08 00:12] VITALS: BP 102/58
--- NOTE | 2025-10-08 04:05 | NUR ---
SPUTUM CULTURE RESULT WAS CONTAMINATED W/REPEAT ORDER PLACED AT THIS TIME.
[2025-10-08 04:15] VITALS: BP 133/71
--- NOTE | 2025-10-08 06:58 | NUR ---
SHIFT SUMMARY: Pt is admitted for COPD exacerbation and is a DNR. is alert and able to make needs known. ADLs have been mostly SBA. denies pain or discomfort when asked. Telly noted sinus in the 70s with no events. On ISO for rhino virus.
[2025-10-08 07:49] VITALS: BP 131/76
[2025-10-08] MEDS ORDERED: Magnesium Hydroxide Conc 10 ML UDC PO PRN (16:25)
[2025-10-08 16:59] VITALS: BP 126/83
--- NOTE | 2025-10-08 17:59 | NUR ---
NO ACUTE CHANGES, MEDICATED FOR BM, REPORTED TO DR NELSON, MEDICATED FOR PAIN WITH TRAMADOL, VERY TALKATIVE, ATARAX GIVEN FOR ANXIETY. FRIEND CAME AND VISITED PATIENT TODAY, CLEARLY MAKES NEEDS KNOWN, TO HAVE A ENEMA, NO BM FOR 7 DAYS, CALL LIGHT WITH IN REACH
[2025-10-08 19:50] VITALS: BP 122/85
[2025-10-08 23:40] VITALS: BP 126/80
--- NOTE | 2025-10-09 02:44 | NUR ---
SHIFT SUMMARY PT ALERT AND ORIENTED X 3. ABLE TO MAKE NEEDS KNOWN. ON CONTACT ISO FOR RHONAVIRUS. VERY HARD OF HEARING. LEGALLY BLIND IN LEFT EYE. PT HAS SCATERED BRUISING THROUGHTOUT. ACHS. 1 PERSON ASSIST. ON ROOM AIR WITH CONTNUOUS NEB TREATMENTS. HOSPITAL SUPPLIED CPAP AT NIGHT. RFA PIV. PT WAS GIVEN 1 ENEMA DUE TO NO BM IN 7 DAYS WHICH RESULTS IN A SMALL/MEDOUM BM. VSS. CALL LIGHT IN REACH.
[2025-10-09 04:22] VITALS: BP 132/65
[2025-10-09 08:02] VITALS: BP 125/64
[2025-10-09] MEDS ORDERED: Insulin Regular 100 UNIT/ML 10ML Vial SC ONE (12:24)
[2025-10-09 15:07] VITALS: BP 133/60
[2025-10-09] MEDS ORDERED: Insulin Regular 100 UNIT/ML 10ML Vial SC SCH (16:30)
--- NOTE | 2025-10-09 19:20 | NUR ---
SHIFT SUMMARY PT A&OX4. PT ADMITTED DUE TO COPD W ACUTE EXAC. PT [place]. PT REPORTS LEGALLY BLIND IN L EYE. PARTIAL IN R EYE. PT REPORTS PAIN IN BLE, PAIN MANAGED PER EMAR. PT REPORTS HX OF NEUROPATHY. PT STANDS INDEPENDENTLY AND USES URINAL. PT MAINTAINING O2 PT REPORTS "IMPROVEMENT ON RESPIRATORY," SPO2 IS 94%. FLUTTER THERAPY AT BEDSIDE. SOLUMEDEROL NOW Q12 AND NOT Q8. PT HAS ACHS BLOOD SUGAR CHECKS, INSULIN GIVEN PER CORRECTION SCALE, BREAK RN REPORTED LUNCH TIME CBG WAS 347. BREAK RN REPORTED DR. NELSON ORDERED ONE TIME OF TEN UNITS OF INSULIN AND NOT GIVE CORRECTION SCALE. PT BLOOD SUGAR FOR DINNER WAS 227. PT ON TELE, NO TELE REPORTS REPORTED, PT HAS HX OF PACEMAKER. PT REPORTS NO CHEST PAIN AND PRESSURE. NIGHT RN REPORTED "PT HAD SMALL BN LAST NIGHT, CONTINUE BOWEL CARE." THIS RN GAVE PRN DOCUSATE, MIRALAX AND MILK OF MAG PER PT REQUEST. PT REPORTS ANXIETY. ATARAX GIVEN ORDERED. PT IN CONTACT ISO DROPLET FOR RHINOVIRUS. PT IN BED, BED IN LOWEST POSITION, LOCKED, CALL LIGHT IN REACH.
[2025-10-09 19:24] VITALS: BP 135/75
[2025-10-10 00:22] VITALS: BP 130/68
--- NOTE | 2025-10-10 01:13 | NUR ---
SHIFT SUMMARY PT IS A&OX4. VERY HARD OF HEARING. LEGALLY BLIND IN L EYE. REPORTS OF PAIN IN BLE AND BACK. MEDICATED WITH TRAMADOL PER MAR. 1PA IN ROOM. USES URINAL INDEPENDENTLY. INCREASED COUGH. MEDICATED WITH PRN TESSALON PEARLS. ON TELE, A PACED. HH DIET. ACHS. ISO PRECAUTIONS FOR RHINOVIRUS. VSS. BED IN LOWEST POSITION. CALL LIGHT IN REACH. PLAN TO DISCHARGE TO [facility], POSSIBLY ON 10/11.
[2025-10-10 03:59] VITALS: BP 150/68
[2025-10-10 08:02] VITALS: BP 128/70
[2025-10-10 14:52] VITALS: BP 132/66
--- NOTE | 2025-10-10 19:51 | NUR ---
SHIFT SUMMARY PT A&OX4. PT ADMITTED DUE TO COPD W ACUTE EXAC. PT ASSINIBOINE AND [place]. PT REPORTS LEGALLY BLIND IN L EYE. PARTIAL IN R EYE. PT REPORTS PAIN IN BLE, PAIN MANAGED PER EMAR, PT VSS. PT REPORTS HX OF NEUROPATHY, PT STANDS INDEPENDENT AND USES URINAL. PT MAINTAINING O2 SPO2 SATS. SPO2 IS 93%. FLUTTER THERAPY AT BEDSIDE. PT ON TELE, NO TELE REPORTS NOTED, PT HAS HX OF PACEMAKER, PT REPORTS NO CHEST PAIN AND PRESSURE. THIS RN GAVE PRN DOCUSATE, MIRALAX AND MILK OF MAG. REPORTED TO NIGHT RN, PT MAY NEED PRN ENEMA. PT REPORTED NO ANXIETY TODAY. PT HAS COUGH, TESSOLON PEARLS GIVEN X1. PT IN CONTACT ISOLATION FOR RHINOVIRUS. PT GETTING SOLUMEDERAL SCHEDULED. RESPIRATORY CARE GIVES NEB TREATMENTS TO PT. ANTIBIOTIC D/C TODAY. PT ACHS BLOOD SUGARS, INSULIN COVERED PER EMAR. PT IN BED, BED IN LOWEST POSITION, AND LOCKED, CALL LIGHT IN REACH.
[2025-10-10 20:22] VITALS: BP 121/58
[2025-10-10 23:51] VITALS: BP 125/80
[2025-10-11 04:20] VITALS: BP 140/95
--- NOTE | 2025-10-11 04:59 | NUR ---
SHIFT SUMMARY NOC: PT A&Ox4, FRIENDLY, AND COMMUNICATES NEEDS APPROPRIATELY. HE EXPERIENCED MILD ANXIETY AT BEDTIME BUT DENIED ANY PAIN OR SHORTNESS OF BREATH. TREATED ANXIETY PER EMAR WITH PRN MEDS. PT USES URINAL INDEPENDENTLY AND REPOSITIONS HIMSELF NEEDED. HE STATES HE IS ABLE TO STAND, BUT DID NOT AMBULATE THIS SHIFT. URINAL AT BEDSIDE AND WITHIN REACH. PT REPORTED THROBBING BLE PAIN AT 0345 AND WAS TREATED PER EMAR WITH AVAILABLE PAIN RELIEF. ALSO TREATED COUGH AT 0411 PER THE EMAR. NO ACUTE EVENTS THIS SHIFT. PT IS DRINKING COFFEE IN BED AT THIS TIME. BED IN LOWEST POSITION, CALL LIGHT WITHIN REACH.
[2025-10-11 07:16] VITALS: BP 147/77
--- NOTE | 2025-10-11 09:00 | NUR ---
pt laying in bed awake a/ox4, pleasant and coopertive with care, follows commands well, denies pain, lungs are a bit course with exp wheezing t/o, resp even and unlabored, no cough noted at this time, on r/a, hrr, no edema noted, ppp+1, cap refill<3 sec, vs stable, afebrile, piv to rfa site is clear and patent btx4, abd flat soft nontender, voids without diff, skin c/w/d, maew, abmulates with a cane, brandy, is legally blind, and a bit [place], call light in reach.
[2025-10-11 11:24] VITALS: BP 135/77
[2025-10-11 16:30] VITALS: BP 130/82
--- NOTE | 2025-10-11 18:11 | NUR ---
pt had an uneventful day, is somewhat confused at times, when this author spoke to him this am he said hes so sick and not doing well, after saw him he said he's feeling much better and will go home tomorrown, no further changes this shift, call light in reach.
[2025-10-11 20:18] VITALS: BP 140/86
[2025-10-11 23:49] VITALS: BP 136/71
[2025-10-12 04:13] VITALS: BP 146/77
[2025-10-12 04:42] LABS: BASOPHILS ABSOLUTE AUTO 0.11 K/mm3 (0.00-0.23); BASOPHILS PERCENT AUTO 1 % (0-2); EOSINOPHILS ABSOLUTE AUTO 0.01 K/mm3 (0.00-0.68); EOSINOPHILS PERCENT AUTO 0 % (0-6); Hematocrit 44.7 % (37.0-53.0); Hemoglobin 15.0 g/dL (13.5-17.5); IMMATURE GRAN ABSOLUTE AUTO 0.98 K/mm3 (0.00-0.10); IMMATURE GRAN PERCENT AUTO 5 % (0-1); LYMPHOCYTES ABSOLUTE AUTO 1.41 K/mm3 (0.84-5.20); LYMPHOCYTES PERCENT AUTO 7 % (21-46); MONOCYTES ABSOLUTE AUTO 0.84 K/mm3 (0.16-1.47); MONOCYTES PERCENT AUTO 4 % (4-13); Mean Corpuscular HGB Conc 33.6 g/dL (31.5-36.5); Mean Corpuscular Volume 94 fL (80-100); NEUTROPHILS ABSOLUTE AUTO 15.59 K/mm3 (1.96-9.15); NEUTROPHILS PERCENT AUTO 82 % (41-73); NRBC ABSOLUTE 0.00 K/mm3 (0.00-0.02); NRBC Auto 0.0 /100 WBC (0.0-0.2); Platelet Count 196 K/mm3 (150-400); RDW Coefficient Variation 13.2 % (11.7-14.2); RDW Standard Deviation 45.4 fL (35.1-46.3)
--- NOTE | 2025-10-12 06:03 | NUR ---
SHIFT SUMMARY NO ACUTE CHANGES OVERNIGHT. PT UTILIZES FWW AND 1 PERSON ASSIST TO BATHROOM. A&OX4. TELE: A-PACED, SR, 1 DEG AVB, BBB, 60 BPM. PASSED BM IN EVENING 12/. PRODUCING SMALL AMOUNT WHITE-YELLOW SPUTUM, GIVEN TESSALON PERLES FOR FREQUENT AM COUGH. EDUCATED ON SLIDING SCALE LISPRO INSULIN SELF-ADMINISTRATION. IV IN LFA. LUNG SOUNDS REMAIN COURSE T/O WITH FAINT END EXPIRATORY WHEEZE. IMPROVING PER PT. POSSIBLE DISCHARGE IN AM. PT HAS SCHEDULE FOR ESTABLISHMENT WITH HOME HEALTH, AND HAS A CURRENT PART-TIME CAREGIVER.
[2025-10-12 06:40] LABS: Alanine Aminotransfer (ALT/SGP 115.0 U/L (12-78); Albumin, Blood 3.7 g/dL (3.4-5.0); Albumin/Globulin Ratio 1.0 (0.8-1.8); Anion Gap 13.0 mmol/L (3-11); Aspartate Aminotrans (AST/SGOT 26.0 U/L (12-37); Bilirubin, Total 0.4 mg/dL (0.1-1.0); Blood Urea Nitrogen 35.0 mg/dL (8-24); CO2, Blood 21.0 mmol/L (21-32); Calcium, Blood 9.5 mg/dL (8.5-10.1); Chloride, Blood 103.0 mmol/L (98-108); Creatinine, Blood 0.88 mg/dL (0.60-1.20); Globulin, Blood 3.7 g/dL (2.2-4.0); Glucose, Blood 291.0 mg/dL (70-99); Potassium, Blood 4.5 mmol/L (3.5-5.5); Sodium, Blood 132.0 mmol/L (136-145); Total Protein, Blood 7.4 g/dL (6.4-8.2)
[2025-10-12] MEDS ORDERED: Insulin Human Lispro 100 Units/ML 3ML Syringe SC SCH (07:30)
[2025-10-12 07:53] VITALS: BP 142/75
[2025-10-12] MEDS ORDERED: Prednisone20 MG PO (10:13)
[2025-10-12] MEDS ORDERED: GABA300 PO (10:13)
--- NOTE | 2025-10-12 12:18 | NUR ---
PT DISCHARGED AT 1210 VIA TRANSPORT [facility]. PT HAD PACKET REVIEWED AND EDUCATIONAL MATERIAL SENT WITH HIM. PT COLLECTED PERSONAL BELONGINGS AND WAS ESCORTED TO [facility] VIA WHEEL CHAIR. NO DISTRESS NOTED.
== END 2025-10-12 12:10 | disposition home health service (06) | DRG 191 ==
LOC: ER 07:55 → PCU 11:48 → MEDS 11:48 → PCU 12:54 → MEDS 10-07 01:29 → ENPENDDIS 10-12 09:01 → MEDS 10-12 12:10
PROVIDERS: Family Medicine; Student in an Organized Health Care Education/Training Program; ADMIT Internal Medicine
DX: J44.1 Chronic obstructive pulmonary disease with (acute) exacerbation (principal); I50.32 Chronic diastolic (congestive) heart failure; E78.5 Hyperlipidemia, unspecified; B18.2 Chronic viral hepatitis C; L40.9 Psoriasis, unspecified; G47.33 Obstructive sleep apnea (adult) (pediatric); E11.51 Type 2 diabetes mellitus with diabetic peripheral angiopathy without gangrene; I11.0 Hypertensive heart disease with heart failure; K52.3 Indeterminate colitis; R74.01 Elevation of levels of liver transaminase levels; Z66 Do not resuscitate; I49.5 Sick sinus syndrome; J06.9 Acute upper respiratory infection, unspecified; B97.19 Other enterovirus as the cause of diseases classified elsewhere; B97.89 Other viral agents as the cause of diseases classified elsewhere; E11.65 Type 2 diabetes mellitus with hyperglycemia; K59.00 Constipation, unspecified; Z95.0 Presence of cardiac pacemaker; Z88.8 Allergy status to other drugs, medicaments and biological substances; Z79.891 Long term (current) use of opiate analgesic; Z79.84 Long term (current) use of oral hypoglycemic drugs; Z87.891 Personal history of nicotine dependence
CPT/HCPCS: 0202U; 36415; 71045; 71046; 80048; 80053; 82947; 85025; 87070; 87205; 87637; 93005; 93010; 94640; 94664; 94760; 94762; 96374; 96375; 97116; 97161; 97165; 97530; 97535; 99285-25; A9270; J0692; J1650; J1815; J2919; J7030; J7050